=== PATIENT | male | born 1950 | race Two or more races ===

== ENCOUNTER 2023-08-21 21:50 | Emergency (ER) | payer SELFPAY ==
[2023-08-21] VITALS (9 sets, daily range): BP systolic 135–152; BP diastolic 66–75; PULSE 68–86; RESP 12–23; TEMP 36.4; O2SAT 98–99; BMI 24.3
--- NOTE | 2023-08-21 22:11 | EKG12_ITS ---
Test Reason : DYSRHYTHMIA Blood Pressure : / mmHG Vent. Rate : 073 BPM Atrial Rate : 073 BPM P-R Int : 214 ms QRS Dur : 080 ms QT Int : 350 ms P-R-T Axes : 078 063 074 degrees QTc Int : 385 ms Sinus rhythm with 1st degree A-V block Otherwise normal ECG Confirmed by Lino Franklin ([id number]), movie editor SNOW GRAJEDA ([id number]) on 08/22/2023 11:15:51 AM Referred By: Confirmed By:Lino Franklin
--- NOTE | 2023-08-21 22:11 | EX.ED.DYSGE1 ---
HPI History of Present Illness Chief Complaint: Hypertension Informant: patient and family (, daughter) Narrative Narrative: 72-year-old male presenting for 2-3 hours worth of symptoms that he has had episodically for the past several months or year consistent with anxiety attacks, but involve dyspnea, anxiety, tremors of his hands and feet (nonsynchronized, not convulsions), that have been treated successfully with clonazepam in the past. Tonight was a particularly long and more severe episode but similar. He was given clonazepam. At this time he is improved, but still having the tremors on occasion but denies any dyspnea. He had no chest discomfort during any of this. No syncope. Family states he was not necessarily thinking straight and seemed a little confused, it was very difficult for them to convince him to come here which is primarily because they checked his blood pressure and it was elevated 195/120 at the worst. Has been compliant with medications he is on. He is from [place] as is his , and the daughter states that he has been diagnosed with seasonal affective disorder because of multiple things. He is used to being very busy, used [place], but now here it is cool and cloudy and he does not have things to do anymore. However, he has 3 stents in his heart, and they were concerned mostly about the blood pressure and they want to make sure he is not having a cardiac event primarily. [facility] Medical History Anxiety Coronary artery sclerosis Depression Hypertension Allergy/AdvReac Type Severity Reaction Status Date / Time No Known Allergies Allergy Verified 08/21/23 21:52 Surgical History Hx of heart artery stent Social History Smoking Status: Never smoker ROS ROS ED Constitutional Constitutional ED: Denies chills or fever(s) Eyes Eyes: Denies change in vision or diplopia ENT ENT ED: Denies rhinorrhea or sore throat Cardiovascular Cardiovascular: Denies chest pain or palpitations Respiratory/Chest Respiratory/Chest: Reports dyspnea; Denies cough Gastrointestinal Gastrointestinal: Denies abdominal pain, diarrhea, nausea or vomiting Genitourinary Genitourinary ED: Denies dysuria or hematuria Musculoskeletal Musculoskeletal: Denies back pain or neck pain Integumentary Denies abscess or rash Neurologic Neurologic: Reports as per HPI and confusion; Denies headache(s), paresthesias or weakness Psychiatric Psychiatric: Reports anxiety; Denies suicidal thoughts EXAM Physical Exam Const Vital Signs: 08/21/23 21:51 08/21/23 22:54 08/21/23 22:54 Temperature 97.6 F L Temperature Source Temporal Pulse Rate 86 85 Respiratory Rate 18 19 H Respiratory Effort Respiratory Pattern Blood Pressure 152/75 H 148/73 H Blood Pressure Mean 100 98 Pulse Ox 98 99 Oxygen Delivery Method Room Air Room Air Room Air 08/21/23 22:55 08/21/23 23:23 08/21/23 22:52 Temperature Temperature Source Pulse Rate 71 73 Respiratory Rate 16 19 H Respiratory Effort Normal Non-Labored Respiratory Pattern Normal Blood Pressure 143/70 H Blood Pressure Mean 94 Pulse Ox 99 99 Oxygen Delivery Method 08/21/23 23:00 08/21/23 23:15 08/21/23 23:22 Temperature Temperature Source Pulse Rate 74 69 68 Respiratory Rate 16 20 H 12 Respiratory Effort Respiratory Pattern Blood Pressure 147/68 H 135/66 H 143/70 H Blood Pressure Mean 93 87 93 Pulse Ox 99 99 99 Oxygen Delivery Method 08/21/23 23:30 08/21/23 23:45 08/22/23 00:00 Temperature Temperature Source Pulse Rate 68 75 70 Respiratory Rate 18 23 H Respiratory Effort Respiratory Pattern Blood Pressure 146/69 H 150/70 H 153/75 H Blood Pressure Mean 90 95 99 Pulse Ox 99 98 97 Oxygen Delivery Method 08/22/23 00:15 08/22/23 00:30 08/22/23 00:41 Temperature Temperature Source Pulse Rate 67 64 74 Respiratory Rate 17 Respiratory Effort Respiratory Pattern Blood Pressure 148/71 H 145/70 H 159/77 H Blood Pressure Mean 94 92 101 Pulse Ox 96 98 100 Oxygen Delivery Method 08/22/23 00:45 08/22/23 01:00 08/22/23 01:15 Temperature Temperature Source Pulse Rate Respiratory Rate 17 13 Respiratory Effort Respiratory Pattern Blood Pressure 165/75 H 146/71 H 143/66 H Blood Pressure Mean 101 94 89 Pulse Ox 99 96 98 Oxygen Delivery Method Positive well nourished and well developed General Appearance ED: well developed and NAD HEENT Reports moist mucous membranes normocephalic and atraumatic Eyes PERRL and EOMs intact bilaterally Neck full ROM and supple Chest Wall inspection of chest normal and palpation of chest normal Resp normal respiratory effort and clear to auscultation bilaterally Cardio regular rate, regular rhythm and no murmurs GI non-tender and non-distended Auscultation: normoactive bowel sounds Palpation: soft Back/Spine no CVA tenderness General Back: other FROM Extremity normal to inspection General Extremety ED: Negative for edema, pulses abnormal or tenderness General Extremity: Negative for edema or pulses abnormal Neuro oriented x3, CN's II-XII intact bilaterally and no sensory deficits noted Sensorium / Orientation: awake and alert Motor Exam: strength 5/5 throughout Skin no rashes or lesions noted and no wounds MDM MDM MDM Narrative Medical decision making narrative: Performed a cardiac workup, his EKG and initial troponin measurement are normal, with the troponin measurement in the single digits well within normal limits. He was given aspirin 162 mg while we worked him up and observed him. He was doing well and did not have any recurrent symptoms, but family did state he was continuing to have thoughts. In discussing this further, he is anxious and having thoughts of having trouble making it back to [place] as he is supposed to go soon. Family states it is basically fear but he is not suicidal and they are trying to reassure him. If his second troponin measurement is unchanged or lower, plan will be to discharge him home and reassure him with regards to his anxiety, he does not need acute treatment since he had a clonazepam earlier it seems to have been helping and he states he is doing well right now. Repeat troponin came back identical measurement of 7, for a delta of 0. Reassured, more likely symptoms due to anxiety. They have clonazepam at home. Heart score 4 and 2 negative troponins am comfortable discharging him home. Blood pressure discharge 143/66. Lab Data Attestation: I reviewed the patient's lab results. Labs: Laboratory Results - last 24 hr 08/21/23 08/22/23 22:19 00:35 WBC 14.7 H RBC 5.19 Hgb 14.3 Hct 42.0 MCV 80.9 MCH 27.6 MCHC 34.0 RDW Std Deviation 34.9 L RDW Coeff of [place] 11.9 Plt Count 456 H MPV 7.9 Immature Gran % (Auto) 0.500 Neut % (Auto) 69.2 Lymph % (Auto) 21.2 [place] % (Auto) 8.1 Eos % (Auto) 0.7 Baso % (Auto) 0.3 Absolute Neuts (auto) 10.2 H Absolute Lymphs (auto) 3.12 Nucleated RBC % 0 Sodium 129 L Potassium 3.8 Chloride 97 L Carbon Dioxide 26.0 Anion Gap 6 BUN 19 H Creatinine 0.58 L Estim Creat Clear Calc 76.43 Est GFR (MDRD) Af Amer 178 Est GFR (MDRD) Non-Af 147 BUN/Creatinine Ratio 32.9 H Glucose 145 H Calcium 9.1 Troponin I High Sens 7 7 Radiography Diagnostic Testing: Clinical Impression(s) from Imaging Studies Chest X-Ray 08/21/23 22:40 IMPRESSION: No radiographic evidence of acute cardiopulmonary disease. Electronically Signed: Sukh Mishra MD at 23:18 EDT , Rhythm Strip Rhythm Strip: Sinus Rhythm Rate: 75 Ectopy: None EKG Initial EKG: Attestation: I personally reviewed and interpreted this EKG as follows: Interpretation: Sinus Rhythm, No Acute Injury Pattern and AV Block (First-degree) Prior EKG tracings: not available for review Prior: No Prior Discharge Plan Triage Chief Complaint: Hypertension ED Provider: [place] Dx/Rx/DC Orders Clinical Impression: Anxiety, Dyspnea, Episode of hypertension Instructions: ED Anxiety Reaction Primary Care Provider: Care Physician,No Primary Referrals: NOT,DEFINED [Non-Staff] - Doctor,Your [Non-Staff] - 1-2 Weeks Disposition Disposition: Home, Self Care
[2023-08-21 22:36] LABS: Absolute Lymphocyte Count 3.12 X10^3/uL (0.83-4.51); Absolute Neutrophil Count 10.2 X10^3/uL (2.0-7.7); Basophil# 0.04 X10^3/uL; Basophil% 0.3 % (0-1); Eosinophil# 0.11 X10^3/uL; Eosinophils% 0.7 % (0-5); Hemoglobin 14.3 g/dL (13.0-16.5); Lymphocyte # 3.12 X10^3/ul (0.83-4.51); Lymphocyte % 21.2 % (19-41); Mean Corpuscular Hgb 27.6 pg (27.0-32.0); Mean Corpuscular Volume 80.9 fL (80-94); Mean Platelet Vol. 7.9 fl (6.2-12.0); Monocyte# 1.19 X10^3/uL; Monocyte% 8.1 % (0-10); NRBC Flagged by Analyzer 0 % (0-5); Neutrophil # 10.16 X10^3/uL (2.7-7.7); Neutrophil % 69.2 % (47-70); Platelet Count 456 K/mm3 (150-450); RBC Distribution Width CV 11.9 % (11.6-14.6); RBC Distribution Width SD 34.9 fl (35.1-43.9); Red Blood Count 5.19 M/mm3 (4.6-6.2); White Blood Count 14.7 K/mm3 (4.4-11.0)
--- NOTE | 2023-08-21 22:40 | RAD_ITS ---
INDICATION: chest pain EXAMINATION/TECHNIQUE: X-RAY - portable upright AP chest x-ray COMPARISON: None. FINDINGS: LINES/DEVICES: None. LUNGS: No consolidation, edema or effusion. No pneumothorax. MEDIASTINUM AND CARDIOVASCULAR STRUCTURES: Cardiac silhouette not enlarged. Central airways and mediastinal contour are unremarkable. BONES AND SOFT TISSUES: No acute findings. RAD/Chest 1 View (Portable) IMPRESSION: No radiographic evidence of acute cardiopulmonary disease. Electronically Signed: Sukh Mishra MD at 23:18 EDT ,
[2023-08-21 22:43] LABS: Anion Gap 6 (5-15); BUN 19 mg/dL (7-18); BUN/Creat Ratio 32.9 RATIO (10-20); Calcium,Total 9.1 mg/dL (8.5-10.1); Chloride 97 mmol/L (98-107); Creatinine, Serum 0.58 mg/dL (0.70-1.30); EST Glomerular Filtration Rate 147 mL/min (>60); Est Glom Filt Rate - Afr Amer 178 mL/min (>60); Estimated Creatinine Clearance 76.43 ml/min; Glucose 145 mg/dL (74-106); Potassium 3.8 mmol/L (3.5-5.1); Sodium Level 129 mmol/L (136-145); Troponin-I HS (w/2H Reflex) 7 pg/mL (3.0-78.0)
[2023-08-21] MEDS: Aspirin 81 MG TAB.CHEW 162 MG PO (22:53)
[2023-08-22] VITALS (8 sets, daily range): BP systolic 143–165; BP diastolic 66–79; PULSE 64–89; RESP 13–17; TEMP 36.2; O2SAT 96–100
[2023-08-22 00:22] LABS: Reflex Troponin-HS? (from REC) Y
[2023-08-22 01:07] LABS: Troponin-I HS 7 pg/mL (3.0-78.0)
== END 2023-08-22 01:32 | disposition home or self-care (01) ==
PROVIDERS: Emergency Provider Emergency Medicine; Visit Provider Emergency Medicine
DX: I10 Essential (primary) hypertension (principal); F41.9 Anxiety disorder, unspecified; R06.00 Dyspnea, unspecified
CPT/HCPCS: 71045; 80048; 84484; 85025; 93005; 99284; A4216